=== PATIENT | female | born 1965 | race Caucasian/White ===

== ENCOUNTER → 2016-08-11 | Outpatient (CLI) | payer BC ==
[~2016-08-11] MED LIST: ALBU1AER9 INH; ALBUAER19 INH; EPP3/2 IM; IBUP-1427 PO; LORA-741 PO; LORA10TA51 PO; MULT-506 PO; OMEG10007 PO; OXYC-57 PO; SEASONALE PO
--- NOTE | 2016-08-11 15:28 | MAMMOGRAPHY REPORT ---
BILATERAL DIGITAL DIAGNOSTIC MAMMOGRAM TOMOSYNTHESIS WITH CAD AND TARGETED RIGHT ULTRASOUND: 08/12/19 17 CLINICAL HISTORY: 12 month follow-up of a probably benign hypoechoic lobulated mass in the 3:00 righ t breast seen on ultrasound. Also time of annual bilateral screening mammogram. TECHNIQUE: Bilateral breast tomosynthesis in addition to standard 2D mammography was performed. Curr ent study was also evaluated with a Computer Aided Detection (CAD) system. COMPARISON: Comparison is made to exams dated: 07/08/2015 mammogram, 07/08/2015 ultrasound, 11/08/2014 ultrasound, 11/08/2014 mammogram, 04/24/2014 ultrasound, and 04/24/2014 mammogram - [facility]. BREAST COMPOSITION: The tissue of both breasts is extremely dense, which lowers the sensitivity of mammography. FINDINGS: There are diffuse bilateral punctate and round microcalcifications. No obvious new mass, architectural distortion or cluster of suspicious microcalcifications is seen. Targeted ultrasound was performed in the 3:00 right breast to reevaluate the benign-appearing hypoec hoic solid parallel mass seen on prior ultrasounds. In the 3:00 right breast, 1 cm from the nipple, there is a hypoechoic lobulated circumscribed parallel mass without evidence of posterior acoustic enhancement or posterior shadowing. It measures 3.0 x 2.4 x 5.0 mm. When comparing to prior ultras ounds, this appears unchanged dating back to 04/24/2014, at which time it measured 5.5 x 2.7 x 3.0 m m. Given 2 years of stability is considered benign and no further close follow-up is needed at this time. IMPRESSION: ACR BI-RADS CATEGORY 2: BENIGN, TARGETED ULTRASOUND ACR BI-RADS CATEGORY 2: BENIGN There is a stable benign appearing parallel circumscribed hypoechoic mass in the 3:00 right breast o n ultrasound, which is unchanged over a period of 2 years and considered benign. Overall, the bilat eral mammograms are also stable, without mammographic evidence of malignancy. A 1 year screening ma mmogram is recommended. These results and recommendations were discussed with the patient at the time of the exam. Approximately 10% of breast cancers are not detected with mammography. A negative mammographic repor t should not delay biopsy if a clinically suggestive mass is present. Shahrzad Hairston M.D. ay/:08/11/2016 11:48:35 Labeling Machine Operator: January Barker RT(R)(M), [facility] letter sent: Normal /2 BI-RADS Code: ACR BI-RADS Category 2: Benign Ultrasound BI-RADS: ACR BI-RADS Category 2: Benign
== END | disposition home or self-care (01) ==
LOC: C.MAMM 07:52
PROVIDERS: ATTEND Obstetrics & Gynecology
DX: N63 Unspecified lump in breast (principal)

== ENCOUNTER → 2017-01-25 | Outpatient (CLI) | payer BC | END | disposition home or self-care (01) | LOC: C.PAPS 14:08 | PROVIDERS: ATTEND Obstetrics & Gynecology | DX: Z01.419 Encounter for gynecological examination (general) (routine) without abnormal findings (principal) ==